=== PATIENT | male | born 1940 | race Two or more races ===

== ENCOUNTER 2020-07-30 07:00 | Day surgery (SDC) | payer OTHER ==
[~2020-07-30 07:00] MED LIST: B12 ACTIVE1000 MCG PO; GABAPENTIN600 MG PO; TOPROL XL25 M1 PO; ULTRACET PO; VIT C-ROSE HIP500 MG PO; VITAL-D RX TAB1 EACH PO; XARELTO15 MG PO
[2020-07-30] MEDS ORDERED: COLACE100 MG PO (07:31)
[2020-07-30] MEDS ORDERED: PERCOCET 5-3251 EACH PO (07:31)
[2020-07-30] MEDS ORDERED: DIAZEPAM5 MG PO (07:31)
== END 2020-07-31 12:00 | disposition home or self-care (01) ==
LOC: CIR.AMB 07:00 → SURH 09:30 → CIR.AMB 09:30 → EDSTATUS 09:30 → CIR.AMB 10:00 → O/R 13:38 → SURG 13:38 → CIR.AMB 07-31 12:00
PROVIDERS: ATTEND Orthopaedic Surgery Orthopaedic Surgery of the Spine
DX: M50.01 Cervical disc disorder with myelopathy, high cervical region (principal); Z20.822 Contact with and (suspected) exposure to COVID-19
CPT/HCPCS: 22551; 20930; 20939; 22845; 22853; C1776